=== PATIENT | male | born 1985 | race Caucasian/White ===

== ENCOUNTER 2025-07-11 19:36 | Emergency (ER) | payer OTHER, SELFPAY ==
[2025-07-11 19:44] VITALS: BP 117/75
--- NOTE | 2025-07-12 00:32 | ED.GENMED ---
History of Present Illness
General
Chief Complaint: Skin Problem
Source: patient
Exam Limitations: none
Time Seen by Provider: 07/12/25 00:02
Nursing documentation reviewed up to this point in time: agreed with
History of Present Illness
History of Present Illness:
Note:
CHIEF COMPLAINT(S)
Rash with itching.
HISTORY OF PRESENT ILLNESS
The patient is a 39-year-old male with past medical history who presents today with a rash that began approximately today after waking up this morning he noticed itching throughout the day. He reports removing his clothing in the evening and
discovering a widespread rash. The patient describes the rash as raised and itchy, primarily located in the chest and seem to later also appear in the abdomen and patchy appearance on the arms and legs, and it has spread over time. He expresses
uncertainty regarding the exact cause but mentions potential contact possibly mice in the house. He denies any animal bites. Other family members in his house have not had a similar rash. He denies any new foods or known allergens and reports no
fever, respiratory symptoms, or throat itchiness. He denies any tongue or lip swelling. He denies any exposure to new detergents, soaps. The patient suspects an allergic reaction, as it does not seem infectious. He admits to being generally well
aside from the rash. He has no nausea, vomiting, abdominal pain. No intraoral lesions.
PLAN
- Initiate treatment with prednisone for the rash.
- Advise the patient to take diphenhydramine (Benadryl) at home.
- Recommend follow-up with family doctor or supportive employment case manager for further evaluation and allergy testing.
- [employer] Operator on signs to return to the emergency department, such as blistering, difficulty breathing, or swelling.
- Provide a referral to an supportive employment case manager.
PHYSICAL EXAM
General: Patient is well appearing and in no acute distress; non-toxic
Skin: Urticaria with mild erythema and patches noted to the sides of the abdomen, the back, and some on the extremities. No evidence of follicular lesions or abscesses, no blistering or skin peeling.
Head: Normocephalic, atraumatic
Eyes: Sclera non-icteric. EOMs intact.
ENT: No intraoral lesions. No tongue or lip swelling. Uvula midline.
Cardiac: Regular rate
Peripheral Vascular: No lower extremity swelling or edema
Pulm: Normal respiratory effort
Abdomen: No abdominal tenderness to palpation
Neuro: CN II-XII intact, no focal neurologic deficits.
Psychiatric: Appropriate mood and affect.
DIFFERENTIAL DIAGNOSIS
The Differential Diagnosis includes, in no particular order and is not limited to:
- Allergic dermatitis
- Contact dermatitis
- Atopic dermatitis
- Urticaria
- Psoriasis
- Seborrheic dermatitis
- Drug reaction
- Eczema
- Pityriasis rosea
- Viral exanthem
PATIENT EDUCATION AND COUNSELING
- Educated the patient on the likely allergic nature of the rash and the importance of taking medications as prescribed.
- Informed the patient about potential triggers and advised on avoiding suspected allergens or irritants.
- Advised to monitor symptoms and return if severe symptoms develop.
FOLLOW-UP INSTRUCTIONS
- Suggested follow-up with primary care physician or supportive employment case manager.
- Discussed obtaining a referral for an supportive employment case manager for further evaluation and testing.
MEDICATION RECONCILIATION
- Started on prednisone today.
- Recommended [id number] diphenhydramine (Benadryl) to manage itching.
MEDICAL DECISION MAKING
-Complexity of Data Reviewed: Chronic conditions affecting care were not clearly mentioned beyond the rash. Differential diagnosis includes potential allergic and contact dermatitis, among others.
-Data:
Category 1:
- No specific tests or external records reviewed.
Category 2:
- No independent interpretation of tests as none were discussed.
Category 3:
- No management discussions with other healthcare providers mentioned.
-Risk:
Prescription medication (prednisone) was prescribed.
Presents to the ER today with concerns of a rash that. Physical exam consistent urticaria. Rash is itchy and is raised. Suspect allergic reaction versus dermatitis. No trigger unable to be identified at this time, discussed importance of
following up with allergy and possible dermatology. Discussed follow-up with PCP in 1 week for reassessment. Will initiate steroid taper. Patient can use Benadryl and antihistamines as needed. Patient in agreement with plan. Red flag signs and
concerning symptoms return to emergency department for. Patient stable for discharge.
DIAGNOSIS
- Acute urticaria
Past History
Past History
ED Past Medical History: None
ED Past Surgical History: None
Social History
Tobacco: Non-smoker
Alcohol: Occasional
Personal: Single
Living: with family
Employment: Employed
Review of Systems
Review of Systems
All Other Systems: ROS reviewed and negative except as documented in HPI and ROS
Phy Exam
Physical Exam
Physical Exam:
see hpi
Course
Orders/Labs/Results
Orders:
Orders
07/12/25 00:25
Diphenhydramine [Benadryl] 25 mg PO NOW STA
Prednisone [Deltasone] 50 mg PO NOW STA
07/12/25 00:26
Famotidine [Pepcid] 20 mg PO NOW STA
07/12/25 00:27
Diphenhydramine [Benadryl] 25 mg PO NOW STA
Vital Signs
Initial and Last Documented VS:
Initial Vital Signs
Temp Pulse Resp BP Pulse Ox
98.2 F 70 16 117/75 96
07/11/25 19:44 07/11/25 19:44 07/11/25 19:44 07/11/25 19:44 07/11/25 19:44
Last Documented Vital Signs
Temp Pulse Resp BP Pulse Ox
98.2 F 57 18 132/84 97
07/11/25 19:44 07/12/25 00:36 07/12/25 00:36 07/12/25 00:36 07/12/25 00:36
*Pulse Oximetry
SaO2: 96
Oxygen Mode of Delivery: Room air
Patient hypoxic: no
*Critical Care Note
Total Time (30-74mins, 75-104mins- exclusive of procedures): Not Applicable
ED Attending Note
-
Portions of this chart may have been created with voice recognition software.� Occasional wrong word or��sound alike� substitutions may have occurred due to the inherent limitations of voice recognition software.
Discharge Plan
Departure
Patient Disposition: Home (Routine Discharge)
Date of Disposition: 07/12/25
Time of Disposition: 00:52
Patient with high blood pressure during this ER visit?: Yes
Condition: Good
Discharge Problem:
Acute urticaria
Instructions: Hives, BLOOD PRESSURE
Prescriptions:
New
prednisone 10 mg Tablet
See Rx Instructions .ROUTE .COMPLEX Qty: 30 0RF
Rx Instructions:
Take By Mouth:
40 mg daily x3 days, 30 mg daily x3 days,
20 mg daily x3 days, 10 mg daily x3 days.
Referrals:
NONE,* [Family Provider, Internal Medicine]
Jaime Alcala MD [[facility] [place], Account Development Representative] - Call in 1-3 days for appt
Activity Restrictions/Additional Instructions:
Prednisone taper has been sent to your pharmacy. Please follow-up instructions for dosing. You been given a referral for an supportive employment case manager, please call the attached number to schedule appointment for follow-up. You can also take Benadryl and
famotidine/Claritin as needed for further itching. This can be picked up over the counter.
PLEASE RETURN TO ER IF YOU DEVELOP TONGUE OR LIP SWELLING, TROUBLE BREATHING, ABDOMINAL PAIN, INTRACTABLE NAUSEA OR VOMITING, CHEST PAIN, BLISTERING OR PEELING OF THE SKIN, LESIONS INSIDE THE MOUTH OR NOSE, OR ANY OTHER SIGNS OR SYMPTOMS WORRISOME
TO YOU.
Interventions
Interventions:
*Risk Screen - Suicide Last Done: 07/11/25 19:44
*General Assessment Last Done: 07/11/25 22:47
*Neglect/Abuse Screening Last Done: 07/11/25 19:44
*ED COVID-19 Vaccine History Last Done: 07/11/25 22:47
*ED Influenza Vaccine History Last Done: 07/11/25 22:47
[facility] Fall Risk Assessment Tool Last Done: 07/11/25 22:47
*Nursing Disposition Last Done: 07/12/25 01:00
ED-Skin Assessment Last Done: 07/11/25 23:01
Discharge Date and Time
Discharge Date/Time: 07/12/25 01:00
Print Language: [place]
[2025-07-12] MEDS: DELTASONE 50 MG PO (00:34)
[2025-07-12] MEDS: BENADRYL 25 MG PO (00:34)
[2025-07-12] MEDS: PEPCID 20 MG PO (00:34)
[2025-07-12 00:36] VITALS: BP 132/84
== END 2025-07-12 01:00 | disposition home or self-care (01) ==
LOC: EMR 19:36
PROVIDERS: EMERGENCY PHYSICIAN Emergency Medicine
DX: L50.9 Urticaria, unspecified (principal); R03.0 Elevated blood-pressure reading, without diagnosis of hypertension
CPT/HCPCS: 99283